=== PATIENT | male | born 1995 | race Caucasian/White ===

== ENCOUNTER 2019-01-20 11:16 | Outpatient (CLI) | payer OTHER ==
--- NOTE | 2019-01-20 12:05 | RAD ---
Exam: 2V soft tissue neck HISTORY: Screening for metal. Patient scheduled for MRI FINDINGS: Metallic density appears to be within the left mandible. IMPRESSION: Metallic density appears to be in the left mandible
--- NOTE | 2019-01-20 12:46 | MRI ---
MRI Lumbar Spine Noncontrast: HISTORY: Intervertebral disc disorder with radiculopathy. Low back pain for over one year. Left lower extremit y radiculopathy. COMPARISON: None FINDINGS: The visualized retroperitoneal structures demonstrate a normal appearance. Conus medullaris is normal in morphology and terminates at the L1 level. The paravertebral soft tissues have a normal MRI appearance. L1-2: There is no disc bulge or disc herniation. Central spinal canal and neural foramina are patent. Mild facet degenerative changes are present. L2-3: There is no disc bulge or disc herniation. Central spinal canal and neural foramina are patent. L3-4: There is no disc bulge or disc herniation. Central spinal canal and neural foramina are patent. Mild facet degenerative changes are present. L4-5: There is loss of intervertebral disc height. There is linear decreased T1 and T2-weighted signa l intensity in the intervertebral disc suggesting vacuum phenomenon. There is a left central and paracentral disc extrusion with disc material seen just posterior to the inferior endplate of the L4 vertebral body and just posterior to the superior endplate of the L5 vertebral body. This results in moderate narrowing of the central spinal canal. This disc extrusion also posteriorly displaces and flattens the traversing left L5 nerve root. The neural foramina at this level are patent. L5-S1: Similar to the above level, there is loss of intervertebral disc height with evidence of vacuu m phenomenon. There is a mild disc osteophyte complex present. This encroaches on the traversing bilateral S1 nerve roots but does not appear to displace the nerve roots. Central spinal canal and ne ural foramina are patent. 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 Correlation for left L5 radiculopathy is recommended.
== END 2019-01-20 11:17 | disposition home or self-care (01) ==
LOC: SCSMRI 11:16
PROVIDERS: ATTEND Family Medicine
DX: M51.16 Intervertebral disc disorders with radiculopathy, lumbar region (principal); M51.17 Intervertebral disc disorders with radiculopathy, lumbosacral region; M48.061 Spinal stenosis, lumbar region without neurogenic claudication
CPT/HCPCS: 70360; 72148